=== PATIENT | male | born 1960 | race African-American/Black ===

== ENCOUNTER 2016-06-29 20:56 | Inpatient (IN) | payer MEDICARE, MEDICAID ==
[~2016-06-29] VITALS: Ht 162.6 cm; Wt 68.9 kg
[~2016-06-29 20:56] MED LIST: BENAZEPRIL HCL20 MG ORAL; COLACE100 MG ORAL; GEMFIBROZIL600 MG ORAL; HYDROCHLOROTHIA25 MG ORAL; LIPITOR20 MG ORAL; Levetiracetam ORAL; MIRALAX17 G2 ORAL; PROAIR HFA8.5 GM INH; SYMBICORT2 PUFF1 INH
[2016-06-29] MEDS ORDERED: Nitroglycerin Subl 0.4mg tab (Bottle Of 25) SL ONE (21:15)
[2016-06-29] MEDS ORDERED: Aspirin Baby 81mg ORAL ONE (21:15)
[2016-06-29] MEDS ORDERED: Tubing IV Cassette IV ONE (21:22)
[2016-06-29 21:39] LABS: LYMPHOCYTES % (AUTO) 23.2 % (20.0-45.0); MEAN CORPUSCULAR HEMOGLOBIN 33.5 PG (27.0-31.0); MEAN CORPUSCULAR HGB CONC 34.2 G/DL (32.0-36.0); MEAN CORPUSCULAR VOLUME 98 FL (80-99); MEAN PLATELET VOLUME 6.8 FL (6.5-10.1); MONOCYTES % (AUTO) 10.8 % (1.0-10.0); NEUTROPHILS % (AUTO) 57.6 % (45.0-75.0); PLATELET COUNT 332 K/UL (150-450); RED BLOOD COUNT 4.15 M/UL (4.70-6.10); RED CELL DISTRIBUTION WIDTH 12.1 % (11.6-14.8)
[2016-06-29 21:40] LABS: BASOPHILS % (AUTO) 1.9 % (0.0-2.0); EOSINOPHILS % (AUTO) 6.5 % (0.0-3.0)
--- NOTE | 2016-06-29 21:44 | Emergency Room Report ---
History of Present Illness General Chief Complaint: Chest Pain Source: Patient Present Illness HPI Is a 55-year-old male who said he smokes marijuana only. Also history of asthma and hypertension. He presents with chief complaint of right-sided chest pain that's been ongoing all day. Pain going to his neck and back. No fever chills but no nausea vomiting. Worse with laying flat. Worse with exertion. No diaphoresis. Pain is 7/10. Did not take anything for this. Allergies: Coded Allergies: FISH CONTAINING PRODUCTS (Verified Allergy, Mild, 04/01/15) PEANUT (Verified Allergy, Mild, 04/01/15) PENICILLIN G (Verified Allergy, Mild, 04/01/15) Shrimp (Verified Allergy, Unknown, 06/29/16) Patient History Past Medical History: see triage record, old chart reviewed, asthma Past Surgical History: other Pertinent Family History: none Social History: Reports: drug use - Marijuana Immunizations: other Reviewed Nursing Documentation: PMH: Agreed, PSxH: Agreed Nursing Documentation-PMH Hx Hypertension: Yes Hx Asthma: Yes Hx Cancer: No Hx Seizures: Yes - 2007 Review of Systems Eye: Denies: blurred vision, eye pain ENT: Denies: ear pain, nose congestion, throat swelling Respiratory: Denies: cough, shortness of breath Cardiovascular: Reports: chest pain, Denies: palpitations Gastrointestinal: Denies: abdominal pain, diarrhea, nausea, vomiting Musculoskeletal: Denies: back pain, joint pain Skin: Denies: rash Neurological: Denies: headache, numbness Endocrine: Denies: increased thirst, increased urine Hematologic/Lymphatic: Denies: easy bruising All Other Systems: negative except mentioned in HPI Physical Exam Vital Signs Date Time Temp Pulse Resp B/P Pulse Ox O2 Delivery O2 Flow Rate FiO2 06/29/16 21:00 97.5 83 18 148/97 98 Room Air vitals with hypertension Sp02 EP Interpretation: reviewed, normal General Appearance: well appearing, no apparent distress, alert Head: normocephalic, atraumatic Eyes: bilateral eye EOMI, bilateral eye PERRL ENT: hearing grossly normal, normal pharynx Neck: full range of motion, supple, no meningismus Respiratory: chest non-tender, lungs clear, normal breath sounds Cardiovascular #1: regular rate, rhythm, no murmur Gastrointestinal: normal bowel sounds, non tender, no mass, no organomegaly, no bruit, non-distended Musculoskeletal: back normal, gait/station normal, normal range of motion Psychiatric: mood/affect normal Skin: warm/dry Medical Decision Making Diagnostic Impression: Primary Impression: Chest pain Qualified Codes: R07.9 - Chest pain, unspecified Additional Impression: ACS (acute coronary syndrome) ER Course Patient present with chest pain. No evidence of PR, PE, dissection, pneumonia to name a few. Pain is better. Because of his risk factor, will get for for further workup and monitoring. I discussed the case with Dr. Ridley who will admit. Lab Results Impression labs unremarkable EKG Diagnostic Results Rate: normal Rhythm: NSR ST Segments: no acute changes Rhythm Strip Diag. Results EP Interpretation: yes Rate: 84 Rhythm: NSR, no PVC's, no ectopy Chest X-Ray Diagnostic Results EP Interpretation: Yes Findings: no consolidation, no effusion, no pneumothorax, no acute cardiopulmonary disease Number of Views: 1 Last Vital Signs Date Time Temp Pulse Resp B/P Pulse Ox O2 Delivery O2 Flow Rate FiO2 06/29/16 21:26 142/86 06/29/16 21:05 83 18 Room Air 06/29/16 21:00 97.5 98 Status: improved Disposition: ADMITTED INPATIENT Condition: Serious Referrals: JEFFERSON RIDLEY (PCP) KVNG GARRISON M.D. June 29, 2016 21:44
[2016-06-29 22:02] LABS: APPEARANCE,URINE CLEAR; KETONES,URINE NEGATIVE (NEGATIVE); LEUKOCYTE ESTERASE ,URINE NEGATIVE (NEGATIVE); NITRITE,URINE NEGATIVE (NEGATIVE); PH,URINE 6 (4.5-8.0); PROTEIN,URINE NEGATIVE (NEGATIVE); UROBILINOGEN,URINE NORMAL MG/DL (0.0-1.0)
[2016-06-29 22:08] LABS: TROPONIN I < 0.30 ng/mL (<=0.30)
[2016-06-29 22:11] LABS: ALANINE AMINOTRANSFERASE 11 U/L (3-41); ALBUMIN/GLOBULIN RATIO 1.5 (1.0-2.7); ANION GAP 16 (5-15); ASPARTATE AMINO TRANSFERASE 11 U/L (5-40); CALCIUM 9.3 mg/dL (8.6-10.2); CARBON DIOXIDE 24 mEQ/L (20-30); CHLORIDE 100 mEQ/L (98-107); CREATININE 1.3 mg/dL (0.7-1.2); GLOMERULAR FILTRATION RATE > 60 mL/min (>60); HEMOLYSIS 6; SODIUM 140 mEQ/L (135-145); TOTAL PROTEIN 6.5 g/dL (6.6-8.7)
[2016-06-29 22:18] LABS: RBC,URINE 0-2 /HPF (0 - 0); WBC,URINE 0-2 /HPF (0 - 0)
[2016-06-29 22:19] LABS: BACTERIA,URINE FEW /HPF
[2016-06-29 22:22] LABS: CKMB 1.8 ng/mL (< 6.7)
[2016-06-29 23:04] VITALS: BP 133/88
[2016-06-29] MEDS ORDERED: XANAX0.25 MG ORAL (23:08)
[2016-06-29] MEDS ORDERED: TAGAMET HB200 MG PO (23:08)
[2016-06-29] MEDS ORDERED: Diltiazem 25mg/5ml IV PRN (23:15)
[2016-06-29] MEDS ORDERED: Miralax 17gm pkt ORAL PRN (23:15)
[2016-06-29] MEDS ORDERED: Enalaprilat 2.5mg/2ml Inj IV PRN (23:15)
[2016-06-29] MEDS ORDERED: Nitroglycerin Subl 0.4mg tab (Bottle Of 25) SL PRN (23:15)
[2016-06-29] MEDS ORDERED: DuoNeb 0.5-3(2.5)mg/3ml neb HHN PRN (23:15)
[2016-06-29] MEDS ORDERED: Morphine Sulfate 2mg/ml Inj IVP PRN (23:15)
[2016-06-29] MEDS ORDERED: Ketorolac 30mg Inj IV PRN (23:15)
[2016-06-30] VITALS (7 sets, daily range): BP systolic 130–154; BP diastolic 77–95
[2016-06-30 06:22] LABS: BASOPHILS % (AUTO) 1.4 % (0.0-2.0); EOSINOPHILS % (AUTO) 7.9 % (0.0-3.0); LYMPHOCYTES % (AUTO) 22.7 % (20.0-45.0); MEAN CORPUSCULAR HEMOGLOBIN 31.5 PG (27.0-31.0); MEAN CORPUSCULAR HGB CONC 33.6 G/DL (32.0-36.0); MEAN CORPUSCULAR VOLUME 94 FL (80-99); MEAN PLATELET VOLUME 7.5 FL (6.5-10.1); PLATELET COUNT 341 K/UL (150-450); RED BLOOD COUNT 4.35 M/UL (4.70-6.10); RED CELL DISTRIBUTION WIDTH 12.1 % (11.6-14.8); WHITE BLOOD COUNT 6.2 K/UL (4.8-10.8)
[2016-06-30 06:37] LABS: CHOLESTEROL 218 mg/dL (< 200); CHOLESTEROL/HDL RATIO 4.1 (3.3-4.4); CRP QUANT < 0.3 mg/dL (< 0.5); HEMOLYSIS 4; LDL CHOLESTEROL (CALC.) 139 mg/dL (60-99); TROPONIN I < 0.30 ng/mL (<=0.30)
[2016-06-30] MEDS ORDERED: Aspirin Baby 81mg ORAL SCH (09:00)
[2016-06-30] MEDS ORDERED: Heparin 5000 units/ml inj SUBQ SCH (09:00)
[2016-06-30] MEDS: ALPRAZolam 0.25mg tab ORAL SCH ×2 (09:10→12:26)
--- NOTE | 2016-06-30 09:33 | Cardiology Progress Note ---
Assessment/Plan Assessment/Plan [id number] righ sided chest adn neck pain for 2 day now resolved likely m/s hyperlipdimeia htn seizure do per hx all torp neg ekg neg ok to dc home to fu with me in office for furtehr cardiac evlaution Objective Last 24 Hour Vital Signs Date Time Temp Pulse Resp B/P Pulse Ox O2 Delivery O2 Flow Rate FiO2 06/30/16 08:27 97.5 84 20 154/84 99 Room Air 06/30/16 08:00 71 12 145/97 99 Room Air 06/30/16 06:09 75 18 148/79 96 Room Air 06/30/16 03:54 78 21 137/82 96 Room Air 06/30/16 01:51 79 21 152/93 96 Room Air 06/30/16 00:25 78 17 136/77 96 Room Air 06/29/16 23:04 96.9 74 22 133/88 98 Room Air 06/29/16 21:26 142/86 06/29/16 21:05 83 18 Room Air 06/29/16 21:00 97.5 83 18 148/97 98 Room Air Intake and Output 06/29/16 06/30/16 19:00 07:00 Intake Total 1000 ml Output Total 120 ml Balance 880 ml IV Total 1000 ml Output Urine Total 120 ml # Voids 1 Laboratory Tests Test 06/29/16 21:20 06/29/16 21:50 06/30/16 05:45 White Blood Count 7.0 K/UL (4.8-10.8) 6.2 K/UL (4.8-10.8) Red Blood Count 4.15 M/UL (4.70-6.10) L 4.35 M/UL (4.70-6.10) L Hemoglobin 13.9 G/DL (14.2-18.0) L 13.7 G/DL (14.2-18.0) L Hematocrit 40.6 % (42.0-52.0) L 40.9 % (42.0-52.0) L Mean Corpuscular Volume 98 FL (80-99) 94 FL (80-99) Mean Corpuscular Hemoglobin 33.5 PG (27.0-31.0) H 31.5 PG (27.0-31.0) H Mean Corpuscular Hemoglobin Concent 34.2 G/DL (32.0-36.0) 33.6 G/DL (32.0-36.0) Red Cell Distribution Width 12.1 % (11.6-14.8) 12.1 % (11.6-14.8) Platelet Count 332 K/UL (150-450) 341 K/UL (150-450) Mean Platelet Volume 6.8 FL (6.5-10.1) 7.5 FL (6.5-10.1) Neutrophils (%) (Auto) 57.6 % (45.0-75.0) 57.0 % (45.0-75.0) Lymphocytes (%) (Auto) 23.2 % (20.0-45.0) 22.7 % (20.0-45.0) Monocytes (%) (Auto) 10.8 % (1.0-10.0) H 11.0 % (1.0-10.0) H Eosinophils (%) (Auto) 6.5 % (0.0-3.0) H 7.9 % (0.0-3.0) H Basophils (%) (Auto) 1.9 % (0.0-2.0) 1.4 % (0.0-2.0) D-Dimer 304 ng/mL (<500) Sodium Level 140 mEQ/L (135-145) Potassium Level 4.0 mEQ/L (3.4-4.9) Chloride Level 100 mEQ/L (98-107) Carbon Dioxide Level 24 mEQ/L (20-30) Anion Gap 16 (5-15) H Blood Urea Nitrogen 18 mg/dL (7-23) Creatinine 1.3 mg/dL (0.7-1.2) H Estimat Glomerular Filtration Rate > 60 mL/min (>60) Glucose Level 104 mg/dL (74-106) Calcium Level 9.3 mg/dL (8.6-10.2) Total Bilirubin 0.3 mg/dL (0.0-1.2) Aspartate Amino Transf (AST/SGOT) 11 U/L (5-40) Alanine Aminotransferase (ALT/SGPT) 11 U/L (3-41) Alkaline Phosphatase 66 U/L (40-129) Total Creatine Kinase 174 U/L (38-174) Creatine Kinase MB 1.8 ng/mL (< 6.7) Creatine Kinase MB Relative Index 1.0 Troponin I < 0.30 ng/mL (<=0.30) < 0.30 ng/mL (<=0.30) Pro-B-Type Natriuretic Peptide 22 pg/mL (0-125) Total Protein 6.5 g/dL (6.6-8.7) L Albumin 3.9 g/dL (3.5-5.2) Globulin 2.6 g/dL Albumin/Globulin Ratio 1.5 (1.0-2.7) Urine Color Pale yellow Urine Appearance Clear Urine pH 6 (4.5-8.0) Urine Specific [place] 1.025 (1.005-1.035) Urine Protein Negative (NEGATIVE) Urine Glucose (UA) Negative (NEGATIVE) Urine Ketones Negative (NEGATIVE) Urine Occult Blood 1+ (NEGATIVE) H Urine Nitrite Negative (NEGATIVE) Urine Bilirubin Negative (NEGATIVE) Urine Urobilinogen Normal MG/DL (0.0-1.0) Urine Leukocyte Esterase Negative (NEGATIVE) Urine RBC 0-2 /HPF (0 - 0) H Urine WBC 0-2 /HPF (0 - 0) Urine Squamous Epithelial Cells None /LPF (NONE/OCC) Urine Bacteria Few /HPF (NONE) Urine Opiates Screen Negative (NEGATIVE) Urine Barbiturates Screen Negative (NEGATIVE) Phencyclidine (PCP) Screen Negative (NEGATIVE) Urine Amphetamines Screen Negative (NEGATIVE) Urine Benzodiazepines Screen Negative (NEGATIVE) Urine Cocaine Screen Negative (NEGATIVE) Urine Marijuana (THC) Screen Positive (NEGATIVE) H Prothrombin Time 10.0 SEC (9.30-11.50) Prothromb Time International Ratio 1.0 (0.9-1.1) Activated Partial Thromboplast Time 29 SEC (23-33) C-Reactive Protein, Quantitative < 0.3 mg/dL (< 0.5) Triglycerides Level 128 mg/dL (< 150) Cholesterol Level 218 mg/dL (< 200) H LDL Cholesterol 139 mg/dL (60-99) H HDL Cholesterol 53 mg/dL (> 60) Cholesterol/HDL Ratio 4.1 (3.3-4.4) Thyroid Stimulating Hormone (TSH) 1.070 uIU/mL (0.300-4.500) CALI EDWARDS June 30, 2016 09:33
--- NOTE | 2016-06-30 10:10 | Diagnostic Imaging Report ---
Indication: Chest Pain Comparison: 07/22/15 A single view chest radiograph was obtained. Findings: Cardiomediastinal appearance is within normal limits for age. Pulmonary vascularity is appropriate. The diaphragmatic contour is smooth and costophrenic angles are sharp. No pleural effusions are identified. The bones are unremarkable. Impression: No acute findings
--- NOTE | 2016-06-30 14:57 | History and Physical ---
History of Present Illness General Date patient seen: June 30, 2016 Reason for Hospitalization: Chest Pain Present Illness HPI 55-year-old male with hx of asthma and hypertension presented with chief complaint of right-sided chest pain that's been ongoing all day radiating his neck and back. Worse with laying flat. Worse with exertion. No diaphoresis. Pain is 7/10. He is admitted to [facility] for further work up. Allergies: Coded Allergies: FISH CONTAINING PRODUCTS (Verified Allergy, Mild, 04/01/15) PEANUT (Verified Allergy, Mild, 04/01/15) PENICILLIN G (Verified Allergy, Mild, 04/01/15) Shrimp (Verified Allergy, Unknown, 06/29/16) Medication History Scheduled Alprazolam* (Xanax*), 0.25 MG ORAL THREE TIMES A DAY, (Reported) Atorvastatin Calcium* (Lipitor*), 20 MG ORAL BEDTIME Benazepril Hcl* (Benazepril Hcl*), 20 MG ORAL DAILY, (Reported) Gemfibrozil (Gemfibrozil*), 600 MG ORAL TWICE A DAY Hydrochlorothiazide* (Hydrochlorothiazide*), 25 MG ORAL DAILY, (Reported) [Levetiracetam], 500 MG ORAL Q12HR Miscellaneous Medications Budesonide/Formoterol Fumarate (Symbicort 160-4.5 Mcg Inhaler), 2 PUFFS INH, ( Reported) Cimetidine (Tagamet Hb), 200 MG PO, (Reported) Discontinued Medications Albuterol Sulfate* (Proair Hfa*), 1 PUFF INH Q6H, (Reported) Discontinued Reason: Therapy completed Docusate Sodium* (Colace*), 100 MG ORAL DAILY Discontinued Reason: Therapy completed Polyethylene Glycol 3350* (Miralax*), 17 GM ORAL DAILY Discontinued Reason: Therapy completed Patient History Healthcare decision maker pt alert and oreinted x4 Resuscitation status Full Code Advanced Directive on File Past Medical/Surgical History Past Medical/Surgical History: (1) Bipolar 1 disorder (2) COPD (chronic obstructive pulmonary disease) Review of Systems All Other Systems: negative except mentioned in HPI Physical Exam General Appearance: WD/WN Lines, tubes and drains: peripheral HEENT: normocephalic, atraumatic Neck: non-tender, normal alignment Respiratory/Chest: chest wall non-tender, lungs clear Breasts: no masses Cardiovascular/Chest: normal peripheral pulses Abdomen: normal bowel sounds, non tender Genitourinary/Rectal: normal genital exam, normal rectal exam Extremities: normal range of motion, normal inspection Skin Exam: normal pigmentation Last 24 Hour Vital Signs Date Time Temp Pulse Resp B/P Pulse Ox O2 Delivery O2 Flow Rate FiO2 06/30/16 12:00 69 06/30/16 11:49 97.7 69 130/95 Room Air 06/30/16 08:27 97.5 84 20 154/84 99 Room Air 06/30/16 08:15 79 06/30/16 08:00 71 12 145/97 99 Room Air 06/30/16 06:09 75 18 148/79 96 Room Air 06/30/16 03:54 78 21 137/82 96 Room Air 06/30/16 01:51 79 21 152/93 96 Room Air 06/30/16 00:25 78 17 136/77 96 Room Air 06/29/16 23:04 96.9 74 22 133/88 98 Room Air 06/29/16 21:26 142/86 06/29/16 21:05 83 18 Room Air 06/29/16 21:00 97.5 83 18 148/97 98 Room Air Intake and Output 06/29/16 06/30/16 19:00 07:00 Intake Total 1000 ml Output Total 120 ml Balance 880 ml IV Total 1000 ml Output Urine Total 120 ml # Voids 1 Laboratory Tests Test 06/29/16 21:20 06/29/16 21:50 06/30/16 05:45 White Blood Count 7.0 K/UL (4.8-10.8) 6.2 K/UL (4.8-10.8) Red Blood Count 4.15 M/UL (4.70-6.10) L 4.35 M/UL (4.70-6.10) L Hemoglobin 13.9 G/DL (14.2-18.0) L 13.7 G/DL (14.2-18.0) L Hematocrit 40.6 % (42.0-52.0) L 40.9 % (42.0-52.0) L Mean Corpuscular Volume 98 FL (80-99) 94 FL (80-99) Mean Corpuscular Hemoglobin 33.5 PG (27.0-31.0) H 31.5 PG (27.0-31.0) H Mean Corpuscular Hemoglobin Concent 34.2 G/DL (32.0-36.0) 33.6 G/DL (32.0-36.0) Red Cell Distribution Width 12.1 % (11.6-14.8) 12.1 % (11.6-14.8) Platelet Count 332 K/UL (150-450) 341 K/UL (150-450) Mean Platelet Volume 6.8 FL (6.5-10.1) 7.5 FL (6.5-10.1) Neutrophils (%) (Auto) 57.6 % (45.0-75.0) 57.0 % (45.0-75.0) Lymphocytes (%) (Auto) 23.2 % (20.0-45.0) 22.7 % (20.0-45.0) Monocytes (%) (Auto) 10.8 % (1.0-10.0) H 11.0 % (1.0-10.0) H Eosinophils (%) (Auto) 6.5 % (0.0-3.0) H 7.9 % (0.0-3.0) H Basophils (%) (Auto) 1.9 % (0.0-2.0) 1.4 % (0.0-2.0) D-Dimer 304 ng/mL (<500) Sodium Level 140 mEQ/L (135-145) Potassium Level 4.0 mEQ/L (3.4-4.9) Chloride Level 100 mEQ/L (98-107) Carbon Dioxide Level 24 mEQ/L (20-30) Anion Gap 16 (5-15) H Blood Urea Nitrogen 18 mg/dL (7-23) Creatinine 1.3 mg/dL (0.7-1.2) H Estimat Glomerular Filtration Rate > 60 mL/min (>60) Glucose Level 104 mg/dL (74-106) Calcium Level 9.3 mg/dL (8.6-10.2) Total Bilirubin 0.3 mg/dL (0.0-1.2) Aspartate Amino Transf (AST/SGOT) 11 U/L (5-40) Alanine Aminotransferase (ALT/SGPT) 11 U/L (3-41) Alkaline Phosphatase 66 U/L (40-129) Total Creatine Kinase 174 U/L (38-174) Creatine Kinase MB 1.8 ng/mL (< 6.7) Creatine Kinase MB Relative Index 1.0 Troponin I < 0.30 ng/mL (<=0.30) < 0.30 ng/mL (<=0.30) Pro-B-Type Natriuretic Peptide 22 pg/mL (0-125) Total Protein 6.5 g/dL (6.6-8.7) L Albumin 3.9 g/dL (3.5-5.2) Globulin 2.6 g/dL Albumin/Globulin Ratio 1.5 (1.0-2.7) Urine Color Pale yellow Urine Appearance Clear Urine pH 6 (4.5-8.0) Urine Specific [place] 1.025 (1.005-1.035) Urine Protein Negative (NEGATIVE) Urine Glucose (UA) Negative (NEGATIVE) Urine Ketones Negative (NEGATIVE) Urine Occult Blood 1+ (NEGATIVE) H Urine Nitrite Negative (NEGATIVE) Urine Bilirubin Negative (NEGATIVE) Urine Urobilinogen Normal MG/DL (0.0-1.0) Urine Leukocyte Esterase Negative (NEGATIVE) Urine RBC 0-2 /HPF (0 - 0) H Urine WBC 0-2 /HPF (0 - 0) Urine Squamous Epithelial Cells None /LPF (NONE/OCC) Urine Bacteria Few /HPF (NONE) Urine Opiates Screen Negative (NEGATIVE) Urine Barbiturates Screen Negative (NEGATIVE) Phencyclidine (PCP) Screen Negative (NEGATIVE) Urine Amphetamines Screen Negative (NEGATIVE) Urine Benzodiazepines Screen Negative (NEGATIVE) Urine Cocaine Screen Negative (NEGATIVE) Urine Marijuana (THC) Screen Positive (NEGATIVE) H Prothrombin Time 10.0 SEC (9.30-11.50) Prothromb Time International Ratio 1.0 (0.9-1.1) Activated Partial Thromboplast Time 29 SEC (23-33) C-Reactive Protein, Quantitative < 0.3 mg/dL (< 0.5) Triglycerides Level 128 mg/dL (< 150) Cholesterol Level 218 mg/dL (< 200) H LDL Cholesterol 139 mg/dL (60-99) H HDL Cholesterol 53 mg/dL (> 60) Cholesterol/HDL Ratio 4.1 (3.3-4.4) Thyroid Stimulating Hormone (TSH) 1.070 uIU/mL (0.300-4.500) Height (Feet): 5 Height (Inches): 4.00 Weight (Pounds): 152 Medications Current Medications Medications (Trade) Dose Ordered Sig/Greg Route PRN Reason Start Time Stop Time Status Last Admin Dose Admin Acetaminophen (Tylenol) 650 mg Q4H PRN ORAL FEVER 06/29/16 23:15 07/29/16 23:14 Albuterol/ Ipratropium (DuoNeb 0.5-3(2.5)mg/3ml) 3 ml EVERY 4 HOURS PRN HHN Shortness of Breath 06/29/16 23:15 07/04/16 23:14 Alprazolam (Xanax) 0.25 mg THREE TIMES A DAY ORAL 06/30/16 09:00 07/07/16 08:59 06/30/16 12:26 Aspirin (ASA) 162 mg DAILY ORAL 06/30/16 09:00 07/30/16 08:59 06/30/16 09:09 Atorvastatin Calcium (Lipitor) 20 mg BEDTIME ORAL 06/30/16 21:00 07/30/16 20:59 Diltiazem HCl (Cardizem) 10 mg EVERY HOUR PRN IV heart rate more than 120, 06/29/16 23:15 07/29/16 23:14 Enalaprilat (Vasotec) 2.5 mg EVERY 6 HOURS PRN IV sbp more than 160 06/29/16 23:15 07/29/16 23:14 Gemfibrozil (Lopid) 600 mg TWICE A DAY ORAL 06/30/16 09:00 07/30/16 08:59 06/30/16 09:09 Heparin Sodium (Porcine) (Heparin 5000 units/ml) 5,000 units EVERY 12 HOURS SUBQ 06/30/16 09:00 07/30/16 08:59 06/30/16 09:11 Hydrochlorothiazide (Hydrodiuril) 25 mg DAILY ORAL 06/30/16 09:00 07/30/16 08:59 06/30/16 09:10 Ketorolac Tromethamine (Toradol 30mg) 30 mg Q6HR PRN IV moderate pain ( 4-6) 06/29/16 23:15 07/04/16 23:14 Morphine Sulfate (Morphine Sulfate) 2 mg EVERY 4 HOURS PRN IVP severe Pain (Pain Scale 7-10) 06/29/16 23:15 07/06/16 23:14 Nitroglycerin (Ntg) 0.4 mg PRN PRN SL Prn Chest Pain 06/29/16 23:15 07/29/16 23:14 Ondansetron HCl (Zofran) 4 mg Q6H PRN IVP Nausea & Vomiting 06/29/16 23:15 07/29/16 23:14 Pantoprazole (Protonix) 40 mg DAILY ORAL 06/30/16 09:00 07/30/16 08:59 06/30/16 09:09 Polyethylene Glycol (Miralax) 17 gm DAILYPRN PRN ORAL Constipation 06/29/16 23:15 07/29/16 23:14 Temazepam (Restoril) 15 mg HSPRN PRN ORAL Insomnia 06/29/16 23:15 07/06/16 23:14 Assessment/Plan Problem List: (1) Costochondritis ICD Codes: M94.0 - Chondrocostal junction syndrome [Tietze] SNOMED: 48384655 (2) Chest pain ICD Codes: R07.9 - Chest pain, unspecified SNOMED: 69639007 (3) Bipolar 1 disorder ICD Codes: F31.9 - Bipolar disorder, unspecified SNOMED: 783501731 Assessment/Plan serial ekg, troponin cardiology evaluation echo respiratorry treatment ] JEFFERSON OAKLEY June 30, 2016 14:57
--- NOTE | 2016-06-30 17:08 | Consultation ---
DATE OF CONSULTATION: 06/30/2016 CARDIOLOGY CONSULTATION CONSULTING PHYSICIAN: Buddy Paez M.D. REFERRING PHYSICIAN: Olivier Ridley M.D. REASON FOR REFERRAL: Chest pain. HISTORY OF PRESENT ILLNESS: This is a middle-aged gentleman, who presented to the hospital with two days of constant pain in right side of the chest and right side of the neck as if he had slept on and cramping in his neck. This pain continued overnight and yesterday and they finally presented to the emergency room. Because of those symptoms, he was given some nitroglycerin and he was given some aspirin. Approximately in an hour or so after he took the aspirin, the pain resolved and has been resolved since that time. He is no longer experiencing any pain. He does recall that the pain would get worsen when he would turn his head and it would get worse when he would move his arms back when he was driving in the car. He had difficulty with movement of his right arm and he had to use his left arm to drive. Also in the sitting position, in certain positions, he had to and he had a hard time trying to put on the belt. All of those symptoms have gone at the present time. There is no PND or orthopnea. No palpitations. No dizziness or lightheadedness on standing. He does not have any prior cardiac condition. PAST MEDICAL HISTORY: Positive for high blood pressure and high cholesterol. No heart attack. No cancer. No stroke. No hepatitis or tuberculosis. He does have a history of asthma. No ulcers. No kidney problems, liver problems, thyroid problems, or anemia. He does have a history of arthritis and he does not have HIV, AIDS, or blood clots anywhere. His past medical history also includes a history of seizures according to his chart with a history of mixed hyperlipidemia. Acute tubular necrosis, which resolved, bipolar disorder, and a history of smoking. ALLERGIES: He is allergic to penicillin. SOCIAL HISTORY: He denies any smoking at the present time. He tells me he smoked many years ago. Alcohol, he denies using. REVIEW OF SYSTEMS: Gastrointestinal: Negative. Genitourinary: Negative. Lungs: Positive for cough and wheezing. Constitutional: Negative Neurological: Negative. Cardiac: As mentioned in the history of present illness. PHYSICAL EXAMINATION: GENERAL: Shows to be a middle-aged gentleman, in no apparent respiratory distress. HEENT: Unremarkable. NECK: Supple. No jugular venous distention. No abdominojugular reflux noted. LUNGS: Clear to auscultation and percussion. He has some expiratory wheezes. CARDIAC: S1 is normal. S2 is normal. Regular rate and rhythm. No heaves, thrills, or gallops noted. ABDOMEN: Soft and nontender. Positive bowel sounds. EXTREMITIES: There is no clubbing, cyanosis, nor is there any edema. LABORATORY AND DIAGNOSTIC DATA: His white count is 6.2 with a hemoglobin of 13.7 and platelet count of 341,000. Sodium is 140, potassium 4.0, chloride 100, bicarbonate 24, BUN of 18, creatinine 1.3, and glucose is 104. The two sets of cardiac enzymes are all negative. C-reactive protein is normal. Liver function tests are normal. Total cholesterol 218 with LDL of 139 and HDL of 53 and TSH of 1.07. His INR is 1.0 and a PTT of 29. His urinalysis appears unremarkable. His tox screen has been positive for marijuana and his imaging showed a chest x-ray that shows no acute processes. EKG is normal sinus rhythm. No ST or T-wave abnormalities of any kind on his EKG and on the repeat. ASSESSMENT: 1. Right-sided atypical chest pain and neck pain, likely musculoskeletal. 2. Hypertension. 3. Hyperlipidemia. 4. History of seizures. PLAN: Dr. Ridley, this patient was seen in cardiac consultation. The patient's signs and symptoms to the description that is provided, right-sided pain appears to be suggestive of musculoskeletal pain worsening with certain head positions as well as arm position. The pain has absolutely resolved after he took some nitroglycerin, probably the effect of nonsteroidals. Nevertheless, his EKG was unremarkable and his two sets of cardiac enzymes are negative, I think he can probably go home and follow up as outpatient for further testing. Buddy Paez M.D. DR: CAROLYNN JOB#: [id number] CC:
--- NOTE | 2016-07-01 18:49 | Discharge Summary ---
Discharge Summary Hospital Course Date of Admission June 29, 2016 at 23:23 Date of Discharge June 30, 2016 at 16:13 Admitting Diagnosis chest pain, ACS HPI Georges Shine is a 55 year old male who was admitted on June 29, 2016 at 23:23 for Chest Pain/ Acute Coronary Syndrome Hospital Course [id number] Discharge Discharge Disposition Patient was discharged to Home (01) Discharge Diagnoses: Carrie Marie NP July 01, 2016 18:49
--- NOTE | 2016-07-02 02:08 | Discharge Summary 2 SIG ---
DATE OF ADMISSION: 06/29/2016 DATE OF DISCHARGE: 06/30/2016 WAGE AND HOUR INVESTIGATOR: Buddy Paez M.D. BRIEF HOSPITAL COURSE: The patient is a 55-year-old male with history of asthma and hypertension, who presented to ED complaining of right-sided chest pain that has been ongoing all day radiating to his neck and back, which was worse with laying flat and worse with exertion. On evaluation at ED, EKG showed normal sinus rhythm. Chest x-ray showed no consolidation, effusion, or pneumothorax. No acute cardiopulmonary disease. Due to his risk factors, the patient was admitted to telemetry for cardiac evaluation. He was seen by Dr. Paez. Symptoms resolved. He no longer experienced any pain. The patient recalled that pain would get worse when he turn his head and move the arms back. The patient's right-sided pain appear to be suggestive of musculoskeletal pain, which was worsened with certain head position as well as arm position. It has absolutely resolved after he took nitroglycerin. EKG was unremarkable and cardiac enzymes were negative. Due to unexpected resolution of the patient's symptoms and negative workup, the patient was discharged home. Advised outpatient follow up for further testing. FINAL DIAGNOSES: 1. Right-sided atypical chest pain and neck pain likely musculoskeletal. 2. Hypertension. 3. Hyperlipidemia. 4. History of seizures. 5. Costochondritis. 6. Bipolar lung disorder. Olivier Ridley M.D. I have been assigned to dictate discharge summary on this account and I was not involved in the patient's management. Carrie Marie N.P. DR: GRISELDA JOB#: [id number] CC: RADHA
== END 2016-06-30 16:13 | disposition home or self-care (01) | DRG 313 ==
LOC: EMR 21:11 → 2E 23:23 → EDBEDREQ 23:26
DX: R07.89 Other chest pain (principal); R56.9 Unspecified convulsions; M54.2 Cervicalgia; I10 Essential (primary) hypertension; M94.0 Chondrocostal junction syndrome [Tietze]; Z88.0 Allergy status to penicillin; F31.9 Bipolar disorder, unspecified; J44.9 Chronic obstructive pulmonary disease, unspecified; M19.90 Unspecified osteoarthritis, unspecified site; E78.5 Hyperlipidemia, unspecified
CPT/HCPCS: 36415; 71010; 80053; 80061; 80300; 81003; 82550; 82553; 83880; 84443; 84484; 85025; 85379; 85610; 85730; 86140; 93005; 93306

== ENCOUNTER 2017-02-23 09:11 | Emergency (ER) | payer MEDICARE, MEDICAID ==
[~2017-02-23] VITALS: Ht 162.6 cm; Wt 68.5 kg
[~2017-02-23 09:11] MED LIST changes: +TAGAMET HB200 MG PO; +XANAX0.25 MG ORAL
[2017-02-23] MEDS ORDERED: NORCO 5-325 TA1 EACH ORAL (09:53)
[2017-02-23] MEDS ORDERED: ROBAXIN-750750 MG PO (09:53)
[2017-02-23] MEDS ORDERED: IBUPROFEN600 MG ORAL (09:53)
[2017-02-23] MEDS ORDERED: Methocarbamol 750mg tab ORAL ONE (10:00)
[2017-02-23] MEDS ORDERED: Ketorolac 30mg Inj IM ONE (10:00)
[2017-02-23 10:46] VITALS: BP 146/93
--- NOTE | 2017-02-23 10:53 | Diagnostic Imaging Report ---
Indication: Dyspnea Comparison: 06/29/2016 A single view chest radiograph was obtained. Findings: Cardiomediastinal appearance is within normal limits for age. Pulmonary vascularity is appropriate. The diaphragmatic contour is smooth and costophrenic angles are sharp. No pleural effusions are identified. The bones are unremarkable. Impression: No acute findings
--- NOTE | 2017-02-23 15:40 | Emergency Room Report ---
History of Present Illness General Chief Complaint: Upper Respiratory Illness Source: Patient Present Illness HPI 56-year-old male, history of COPD, presenting with cough and back pain. States symptoms have been happening for 2-3 days. States that he has inhaler, has been using it with some relief. Also complaining of left lower back pain, worse with movement. No trauma. No urinary retention and no numbness or tingling of extremities. Patient is still been able to ambulate Allergies: Coded Allergies: FISH CONTAINING PRODUCTS (Verified Allergy, Mild, 04/01/15) PEANUT (Verified Allergy, Mild, 04/01/15) PENICILLIN G (Verified Allergy, Mild, 04/01/15) Shrimp (Verified Allergy, Unknown, 06/29/16) Patient History Past Medical History: see triage record Past Surgical History: none Pertinent Family History: none Reviewed Nursing Documentation: PMH: Agreed, PSxH: Agreed Nursing Documentation-PMH Hx Cardiac Problems: Yes Hx Hypertension: Yes Hx Asthma: Yes Hx Cancer: No History Of Psychiatric Problem: Yes - Anxiety Hx Neurological Problems: Yes Hx Seizures: Yes - 2007 Review of Systems All Other Systems: negative except mentioned in HPI Physical Exam Vital Signs Date Time Temp Pulse Resp B/P (MAP) Pulse Ox O2 Delivery O2 Flow Rate FiO2 02/23/17 09:22 97.3 71 16 146/93 95 Room Air Sp02 EP Interpretation: reviewed, normal General Appearance: normal inspection, well appearing, no apparent distress, alert, GCS 15, non-toxic Head: normocephalic, atraumatic Eyes: bilateral eye normal inspection, bilateral eye PERRL, bilateral eye EOMI ENT: normal ENT inspection, normal pharynx, normal voice, moist mucus membranes Neck: normal inspection, full range of motion, supple Respiratory: normal inspection, lungs clear, normal breath sounds, no respiratory distress, no retraction, no wheezing, speaking full sentences, chest symmetrical Cardiovascular #1: normal inspection, regular rate, rhythm, no edema, normal capillary refill Cardiovascular #2: 2+ radial (R), 2+ radial (L) Gastrointestinal: normal inspection, non tender, soft, non-distended, no guarding Genitourinary: no CVA tenderness Musculoskeletal: other - Left-sided lower lumbar paraspinal tenderness, no midline tenderness, full range of motion all extremities, able to bear weight on both extremities, Neurologic: normal inspection, alert, oriented x3, responsive, motor strength/ tone normal, sensory intact, normal gait, speech normal Psychiatric: normal inspection, judgement/insight normal, memory normal Skin: normal inspection, normal color, no rash, warm/dry, well hydrated, normal turgor Medical Decision Making Diagnostic Impression: Primary Impression: Musculoskeletal back pain ER Course 56-year-old male with cough, back pain DDX: Cough likely viral, patient is not in acute distress not wheezing and clear lungs Back pain Likely musculoskeletal back pain vs. muscular strain vs. sciatica Lumbar fracture is unlikely given patients age, no midline tenderness, no history of trauma, and that patient is ambulatory. Therefore, at this time no imaging is indicated Serious diagnoses such as cord compression, epidural abscess is unlikely in this patient given the clinical scenario and abscess of neurological symptoms or findings. Patient appears nontoxic. Plan: Pain control ER course: Patient has remained nontoxic appearing and ambulatory in the ED. Pain improved w/ medications Disposition: Patient will be discharged to home with prescription of robaxin. Patient cautioned of the effects of robaxin including possible impairment of physical or mental abilities. Patient was instructed to refrain from operating machinery or driving. Patient is also cautioned on the GI effects of motrin and to take sparingly. Patient verbalized understanding. Strict precautions discussed with patient on when to emergently return to the ED which includes severe/worsening back pain, leg weakness/numbness, urinary retention/incontinence, fever or chills, which may indicate severe illness. Patient is to follow up with their PMD within 5 days. Patient agrees with plan. Please note that this Emergency Department Report was dictated using [employer] helper technology software, occasionally this can lead to erroneous entry secondary to interpretation by the dictation equipment. Last Vital Signs Date Time Temp Pulse Resp B/P (MAP) Pulse Ox O2 Delivery O2 Flow Rate FiO2 02/23/17 10:46 97.3 16 146/93 95 Room Air 02/23/17 10:46 71 Disposition: HOME, SELF-CARE Condition: Improved Scripts Ibuprofen* (MOTRIN*) 600 Mg Tablet 600 MG ORAL Q8H Y for For Pain, #30 TAB 0 Refills Prov: RetinoMaia M.D. 02/23/17 Hydrocodone Bit/Acetaminophen 5-325* (NORCO 5-325*) 1 Each Tablet 1 TAB ORAL Q6H Y for For Pain, #10 TAB 0 Refills Prov: Maia Muir M.D. 02/23/17 Methocarbamol* (ROBAXIN-750*) 750 Mg Tablet 750 MG PO QID, #28 TAB 0 Refills Prov: Maia Muir M.D. 02/23/17 Referrals: JEFFERSON OAKLEY (PCP) Patient Instructions: Back Pain, Adult, [id number] Maia Muir M.D. Feb 23, 2017 15:40
== END 2017-02-23 10:49 | disposition home or self-care (01) ==
LOC: EMR 09:58
DX: M54.5 Low back pain (principal); J44.9 Chronic obstructive pulmonary disease, unspecified; F41.9 Anxiety disorder, unspecified; Z86.69 Personal history of other diseases of the nervous system and sense organs
CPT/HCPCS: 71010; 96372; 99283; J1885

== ENCOUNTER 2019-05-03 19:53 | Emergency (ER) | payer MEDICARE, MEDICAID ==
[~2019-05-03] VITALS: Ht 162.6 cm; Wt 72.6 kg
[~2019-05-03 19:53] MED LIST changes: +IBUPROFEN600 MG ORAL; +NORCO 5-325 TA1 EACH ORAL; +REGLAN10 MG ORAL; +ROBAXIN-750750 MG PO
[2019-05-03 20:00] VITALS: BP 137/93
--- NOTE | 2019-05-03 20:00 | NUR ---
ED Nurse Note: Pt walked into ED from home for c/o allergic reaction 4 hours ago. Pt states he was having difficulty breathing. Pt used epi pen which relieved symptoms. Pt is unaware of what he was exposed to that caused reaction. pt is able to speak in full sentences, breathing is normal and unlabored, no indication of blocked airway at this time. pt is aaox4, no cardiac distress noted. will continue to monitor.
[2019-05-03] MEDS ORDERED: EPIPEN 2-P0.3 MG/0.3 IM (20:44)
[2019-05-03] MEDS ORDERED: DIPHENHYDRAMINE25 M1 ORAL (20:44)
[2019-05-03] MEDS ORDERED: PREDNISONE20 MG ORAL (20:44)
[2019-05-03 20:50] VITALS: BP 135/74
--- NOTE | 2019-05-03 20:50 | NUR ---
ER DISCHARGE NOTE: Patient is cleared to be discharged per ERMD, pt is aox4, on room air, with stable vital signs. pt was given dc and prescription instructions, pt was able to verbalize understanding, pt id band removed. pt is able to ambulate with steady gait. pt took all belongings.
--- NOTE | 2019-05-09 14:37 | Emergency Room Report ---
History of Present Illness General Chief Complaint: Allergic Reaction Source: Patient Present Illness HPI 58-year-old male presents to ED for allergic reaction. States that he was in the kitchen where he smelled some fish being prepared. States he is very allergic to fish and seafood. States he felt some tightness in his throat and he used his EpiPen. Happened a few hours ago. States he is feeling overall better but feels a "lump" in his throat. Denies shortness of breath. Denies trouble swallowing. Denies any rash or hives. No other aggravating relieving factors. Denies any other associated symptoms Allergies: Coded Allergies: FISH CONTAINING PRODUCTS (Verified Allergy, Mild, 04/01/15) PEANUT (Verified Allergy, Mild, 04/01/15) PENICILLIN G (Verified Allergy, Mild, 04/01/15) Shrimp (Verified Allergy, Unknown, 06/29/16) Patient History Past Medical History: HTN, asthma Past Surgical History: none Pertinent Family History: none Social History: Denies: smoking, alcohol use, drug use Immunizations: UTD Reviewed Nursing Documentation: PMH: Agreed; PSxH: Agreed Nursing Documentation-PMH Hx Cardiac Problems: Yes Hx Hypertension: Yes Hx Asthma: Yes Hx Cancer: No Hx Neurological Problems: Yes Hx Seizures: Yes - 2007 Review of Systems All Other Systems: negative except mentioned in HPI Physical Exam Sp02 EP Interpretation: reviewed, normal General Appearance: no apparent distress, alert, GCS 15, non-toxic Head: normocephalic, atraumatic Eyes: bilateral eye normal inspection, bilateral eye PERRL ENT: hearing grossly normal, normal pharynx, no angioedema, normal voice Neck: full range of motion, supple/symm/no masses, other - no stridor Respiratory: chest non-tender, lungs clear, normal breath sounds, speaking full sentences Cardiovascular #1: regular rate, rhythm, no edema Cardiovascular #2: 2+ carotid (R), 2+ carotid (L), 2+ radial (R), 2+ radial (L) , 2+ dorsalis pedis (R), 2+ dorsalis pedis (L) Gastrointestinal: normal bowel sounds, non tender, soft, non-distended, no guarding, no rebound Rectal: deferred Genitourinary: normal inspection, no CVA tenderness Musculoskeletal: back normal, normal range of motion, gait/station normal, non- tender Neurologic: alert, motor strength/tone normal, oriented x3, sensory intact, responsive, speech normal Psychiatric: judgement/insight normal, memory normal, mood/affect normal, no suicidal/homicidal ideation Reflexes: 3+ bicep (R), 3+ bicep (L), 3+ tricep (R), 3+ tricep (L), 3+ knee (R) , 3+ knee (L) Skin: no rash Lymphatic: no adenopathy Medical Decision Making Diagnostic Impression: Primary Impression: Allergic reaction Qualified Codes: T78.40XA - Allergy, unspecified, initial encounter ER Course Hospital Course 58-year-old male presents ED for tightness in throat after exposure to fish. Used EpiPen Differential diagnoses include: allergic reaction, angioedema, anaphelaxis Clinical course Patient placed on stretcher. After initial history physical exam reveals middle -age male in no acute distress. No rash. No stridor. Full breath sounds bilaterally. No wheezing. Patient resting comfortably. No signs of distress. Vital stable. No concern for anaphylaxis. discussed findings with patient. Already used his EpiPen. We will give Benadryl and prednisone here. Safe for discharge and close outpatient follow-up. States he has a PMD i. I feel this is a highly complex case requiring extensive working including EKG/Rhythm strip, Xray/CT/US, Blood/urine lab work, repeat exams while in ED, and administration of strong opiates/narcotics for pain control, admission to hospital or close patient follow up. Diagnosis - allergic reaction Stable and discharged to home with prescriptions for epipen, prednisone, Benadryl. Followup with PMD. Return to ED if symptoms recur or worsen Status: improved Disposition: HOME, SELF-CARE Condition: Stable Scripts Epinephrine (Epipen 2-Narinder) 0.3 Mg/0.3 Ml Auto.injct 0.3 MG IM ONCE, #1 EA Prov: Casa Fofana MD 05/03/19 Diphenhydramine Hcl* (DIPHENHYDRAMINE HCL*) 25 Mg Capsule 25 MG ORAL Q6H PRN for Itching for 5 Days, #30 CAP 0 Refills Prov: Casa Fofana MD 05/03/19 Prednisone* (PREDNISONE*) 20 Mg Tablet 40 MG ORAL DAILY, #10 TAB Prov: Casa Fofana MD 05/03/19 Referrals: NOT CHOSEN IPA/,REFERRING (PCP) Patient Instructions: Anaphylactic Reaction, [id number] Casa Fofana MD May 09, 2019 14:37
== END 2019-05-03 20:50 | disposition home or self-care (01) ==
LOC: EMR 20:50
DX: T78.40XA Allergy, unspecified, initial encounter (principal); X58.XXXA Exposure to other specified factors, initial encounter; Y92.9 Unspecified place or not applicable; I10 Essential (primary) hypertension; G40.909 Epilepsy, unspecified, not intractable, without status epilepticus; Z88.0 Allergy status to penicillin; Z91.010 Allergy to peanuts; Z91.013 Allergy to seafood
CPT/HCPCS: 99282; J7512